=== PATIENT | female | born 1975 | race Caucasian/White ===

== ENCOUNTER 2017-07-31 20:06 | Emergency (ER) | payer OTHER ==
[~2017-07-31] VITALS: Ht 154.9 cm; Wt 92.1 kg
[~2017-07-31 20:06] MED LIST: ADDERALL10 MG PO; ADVAIR 250/501 DISK IH; ADVAIR 500/501 DISK IH; BACTRIM,SEPT1 TABLET PO; BENTYL10 MG PO; CIPRO500 MG PO; EFFEXOR100 MG PO; ESKALITH300 M1 PO; FLAGYL500 MG PO; Folvite PO; GABAPENTIN600 MG PO; GLUCOPHAGE1000 MG PO; GUMMIES CHILDR1 EACH PO; KEFLEX500 MG PO; KLONOPIN0.5 M1 PO; LAMICTAL25 MG PO; LOMOTIL TABLET1 EACH PO; MOTRIN IB200 MG PO; OXYCONTIN15 MG PO; OXYCONTIN20 MG PO; PREDNISONE10 MG PO; PRILOSEC40 MG PO; PROAIR HFA8.5 GM IH; PROzac PO; Proventil,Ventolin H IH; ROBITUSSIN AC,T10 ML PO; TIZANIDINE HCL4 MG PO; ZANAFLEX2 M1 PO; ZANTAC150 MG PO; ZOFRAN ODT4 MG PO; ZOLPIDEM TARTRAT5 MG PO; ZOVIRAX200 MG PO
[2017-07-31 20:50] LABS: HEMATOCRIT 39.7 % (36.0-46.0); MCH 30.6 PG (29.0-34.0); MCHC 35.3 G/DL (30.0-36.0); MCV 86.7 FL (83-99); MEAN PLAT.VOLUME 10.5 uM^3 (9.5-12.4); PLATELET COUNT 277 K/uL (156-360); RBC DIS.WIDTH-CV 11.5 % (11.8-14.6); RBC DIS.WIDTH-SD 35.9 % (39-53); RED BLOOD COUNT 4.58 M/uL (3.80-5.20); WHITE BLOOD COUNT 7.2 K/uL (4.1-10.2)
[2017-07-31 21:03] LABS: CHLORIDE 103 mEq/L (99-109); POTASSIUM 3.8 mEq/L (3.7-5.4); SODIUM 137 mEq/L (136-147)
[2017-07-31 21:05] LABS: GLUCOSE 173 mg/dL (70-99)
[2017-07-31 21:06] LABS: ANION GAP 8 MEQ/L (2-14)
[2017-07-31 21:09] LABS: GFR ESTIMATE (CALCULATED) > 59 mL/min/
[2017-07-31 21:10] LABS: UREA NITROGEN (BUN) 16 mg/dL (9-23)
[2017-07-31 21:11] LABS: TROP-I INTERPRETATION NEGATIVE; TROPONIN-I < 0.01 ng/mL (0.0-0.30)
[2017-08-01 00:58] LABS: TROP-I INTERPRETATION NEGATIVE; TROPONIN-I < 0.01 ng/mL (0.0-0.30)
[2017-08-01 01:37] VITALS: BP 106/72
== END 2017-08-01 01:43 | disposition home or self-care (01) ==
LOC: EME 20:06
PROVIDERS: Emergency Medicine
DX: R07.9 Chest pain, unspecified (principal); J45.909 Unspecified asthma, uncomplicated; Z86.73 Personal history of transient ischemic attack (TIA), and cerebral infarction without residual deficits; F32.9 Major depressive disorder, single episode, unspecified; F41.9 Anxiety disorder, unspecified
CPT/HCPCS: 71020; 80048; 84484; 85027; 93005; 99281; 99284

== ENCOUNTER 2017-12-17 12:42 | Emergency (ER) | payer SELFPAY ==
[~2017-12-17] VITALS: Ht 154.9 cm; Wt 92.9 kg
[2017-12-17] MEDS ORDERED: FLEXERIL10 MG PO (14:25)
[2017-12-17] MEDS ORDERED: ZOFRAN ODT4 MG PO (14:25)
[2017-12-17 14:31] VITALS: BP 129/86
== END 2017-12-17 14:32 | disposition home or self-care (01) ==
LOC: EME 12:42
DX: G43.909 Migraine, unspecified, not intractable, without status migrainosus (principal); R11.0 Nausea; J45.909 Unspecified asthma, uncomplicated; F31.9 Bipolar disorder, unspecified; F32.9 Major depressive disorder, single episode, unspecified; F41.9 Anxiety disorder, unspecified; Z86.73 Personal history of transient ischemic attack (TIA), and cerebral infarction without residual deficits; Z88.5 Allergy status to narcotic agent
CPT/HCPCS: 99281; 99284; J1885

== ENCOUNTER 2018-01-22 05:24 | Emergency (ER) | payer OTHER ==
[~2018-01-22] VITALS: Ht 154.9 cm; Wt 94.3 kg
[~2018-01-22 05:24] MED LIST changes: +FLEXERIL10 MG PO
[2018-01-22 06:40] LABS: BASOPHIL (%) 0.5 % (0-1); BASOPHIL COUNT 0.1 K/uL (0-0.1); EOSINOPHIL (%) 1.4 % (0-5); EOSINOPHIL COUNT 0.1 K/uL (0-0.3); HEMATOCRIT 37.1 % (36.0-46.0); HEMOGLOBIN 13.2 G/DL (11.9-15.5); IMMATURE GRANULOCYTE (%) 0.3 % (0.0-0.7); LYMPHOCYTE (%) 25.5 % (15-42); LYMPHOCYTE COUNT 2.4 K/uL (1.0-2.8); MCH 31.4 PG (29.0-34.0); MCHC 35.6 G/DL (30.0-36.0); MCV 88.3 FL (83-99); MONOCYTE COUNT 0.7 K/uL (0-0.8); NEUTROPHIL (%) 65.3 % (45-76); NEUTROPHIL COUNT 6.3 K/uL (1.8-6.4); PLATELET COUNT 265 K/uL (156-360); RBC DIS.WIDTH-CV 12.1 % (11.8-14.6); RBC DIS.WIDTH-SD 38.7 % (39-53); WHITE BLOOD COUNT 9.6 K/uL (4.1-10.2)
[2018-01-22 07:03] LABS: CHLORIDE 104 MEQ/L (99-109); SODIUM 136 MEQ/L (136-147)
[2018-01-22 07:08] LABS: GFR ESTIMATE (CALCULATED) > 59 mL/min/; GLUCOSE 107 mg/dL (70-99); LIPASE 14 U/L (1.0-51.0); UREA NITROGEN (BUN) 16 mg/dL (9-23)
[2018-01-22] MEDS ORDERED: TYLENOL WITH C1 EACH PO (08:05)
[2018-01-22 08:37] VITALS: BP 105/74
== END 2018-01-22 08:48 | disposition home or self-care (01) ==
LOC: EME 05:24
PROVIDERS: Emergency Medicine
DX: R07.81 Pleurodynia (principal); V49.40XA Driver injured in collision with unspecified motor vehicles in traffic accident, initial encounter
CPT/HCPCS: 71101; 80048; 83690; 85025; 99281; 99284